=== PATIENT | male | born 1950 | race Caucasian/White ===

== ENCOUNTER → 2018-05-27 | Day surgery (SDC) | payer MEDICARE ==
[2018-05-22 12:56] LABS: BASOPHILS % 0.6 % (0.0-1.0); EOSINOPHILS # (AUTO) 0.2 (0.0-0.4); EOSINOPHILS % 2.9 % (0.0-6.0); HEMATOCRIT 48.4 % (38.2-49.6); HEMOGLOBIN 16.1 g/dL (14.0-18.0); LYMPHOCYTES # (AUTO) 1.3 (1.0-3.2); MEAN CORPUSCULAR HEMOGLOBIN 31.8 pg (28-32); MEAN CORPUSCULAR HGB CONC 33.3 g/dL (31-35); MEAN CORPUSCULAR VOLUME 95.5 fL (81-99); MONOCYTES # (AUTO) 0.7 (0.2-0.8); MONOCYTES % 13.8 % (4.4-11.3); NEUTROPHILS % 57.5 % (38.7-80.0); PLATELET COUNT 196 x10e3/uL (140-360); RED BLOOD COUNT 5.07 x10e6/uL (4.3-5.7); RED CELL DISTRIBUTION WIDTH 11.9 % (11.7-14.4)
[2018-05-22 13:13] LABS: CREATININE, SERUM 1.26 mg/dL (0.72-1.25)
[~2018-05-27] VITALS: Ht 180.3 cm; Wt 95.3 kg
[2018-05-27] VITALS (11 sets, daily range): BP systolic 116–143; BP diastolic 69–79
[~2018-05-27] MED LIST: ARMOUR THYROID30 MG PO; ASPIR 8181 MG PO; BICALUTAMIDE50 MG PO; FENTANYL CITRATE/PF 100MCG/2 ML INJ ONE; HEPARIN SOD/SOD CHLORIDE 2,000 ML ONE; IOPAMIDOL 370 MG/ML 200 ML INFUS..BTL INJ ONE; LIDOCAINE HCL 2% LOCAL 20 ML VIAL ONE; LISINOPRIL10 MG PO; MIDAZOLAM HCL 2 MG/2 ML VIAL ONE; SODIUM CHLORIDE 0.9% 1000ML 1,000 ML ONE
--- NOTE | 2018-05-27 12:34 | History and Physical ---
CHIEF COMPLAINT: The patient has complaints of chest pain and shortness of breath on mild to moderate exertion. The patient underwent a stress test and could not do more than 3 minutes. The patient had some nonspecific changes noted. The patient also does not want to have a nuclear test done V/Q scan. He is afraid of doing it, so advised to have a coronary angiogram. At this time, the patient was brought here to rule out any significant coronary artery disease. The patient has a history of diastolic congestive heart failure, hyperlipidemia, hypertension, mild obesity, history of prostatic malignancy and thyroid disorder, hypothyroidism. The patient has been having chest pain on and off for some time and not able to do the regular activities that do occur at home. The patient has no history of stroke. The patient does not smoke. He stopped smoking about 35 years ago. THE PATIENT HAS NO SIGNIFICANT ALLERGIES. No stroke. No skeletal abnormality symptoms noted. Present medications include [place] Thyroid, aspirin, Lasix, Lipitor, lisinopril. IMPRESSION 1. Angina pectoris. 2. Poor exercise tolerance. 3. Rule out any significant coronary artery disease. The patient's stress test is inconclusive. 4. Hypertension. 5. Diastolic congestive heart failure. 6. Ex-smoker. The patient will undergo coronary angiogram at this time. Job#: [id number]
--- NOTE | 2018-05-27 12:57 | Operative Report ---
DATE OF PROCEDURE: May 27, 2018 PROCEDURES PERFORMED 1. Left heart catheterization. 2. Left ventricular angiogram. 3. Coronary angiogram. INDICATIONS FOR PROCEDURE: Angina pectoris, shortness of breath, inconclusive stress test, the patient with not more than [address]-T changes, hypertension. This procedure was done at [facility] with informed consent, with conscious sedation, through the right femoral artery. Results of tests as follows: Right coronary arteriogram is normal. Left coronary arteriogram shows circumflex artery is normal, left main is normal, LAD proximally has 20% lesion at the ostial level. Otherwise the LAD is normal. Left ventricular ejection fraction is 60%. Right femoral artery closed with Perclose closure device. Continue medical treatment. Wilfrid SCHULTZ MD Job#: [id number] SARAI
--- NOTE | 2018-05-27 15:08 | Discharge Summary ---
DISCHARGE DIAGNOSES 1. Angina pectoris. 2. Mild coronary artery disease. 3. Diastolic congestive heart failure. 4. Hypertension. 5. Hypothyroidism. 6. Mild obesity. PROCEDURES: By Dr. Schultz 1. Left heart catheterization. 2. Left ventricular angiogram. 3. Coronary angiogram. Patient underwent a coronary angiogram. No significant lesion noted except for ostial lesion noted in the proximal LAD. LVEF 55% to 60%. Recommend medical treatment. Patient to continue all present medications including aspirin, Lipitor, lisinopril, [place] Thyroid, Lasix, and patient advised mild to moderate activities and will discuss with him the cause of the shortness of breath when he is seen in the office. Patient's right groin is normal. Patient had a Perclose closure device performed. The patient will be discharged at 4 p.m. today. I discussed with the at this time. P. VAlexander SCHULTZ MD Job#: [id number] SARAI
== END | disposition home or self-care (01) ==
LOC: CATH LAB 08:34
PROVIDERS: ATTEND Internal Medicine Cardiovascular Disease
DX: I25.119 Atherosclerotic heart disease of native coronary artery with unspecified angina pectoris (principal); R94.31 Abnormal electrocardiogram [ECG] [EKG]; I11.0 Hypertensive heart disease with heart failure; I50.30 Unspecified diastolic (congestive) heart failure; E78.5 Hyperlipidemia, unspecified; E03.9 Hypothyroidism, unspecified; E66.9 Obesity, unspecified; Z01.810 Encounter for preprocedural cardiovascular examination; Z01.812 Encounter for preprocedural laboratory examination; Z79.82 Long term (current) use of aspirin; Z68.35 Body mass index [BMI] 35.0-35.9, adult; Z87.891 Personal history of nicotine dependence; Z82.49 Family history of ischemic heart disease and other diseases of the circulatory system
CPT/HCPCS: 36415; 82565; 84520; 85025; 93005; 93458; J2001; J2250; J7030; Q9967